=== PATIENT | female | born 1995 | race Caucasian/White ===

== ENCOUNTER 2019-09-26 15:24 | Emergency (ER) | payer MEDICAID ==
[~2019-09-26] VITALS: Ht 160 cm; Wt 122.6 kg
[2019-09-26] MEDS ORDERED: DEXAMETHASONE 4 MG TABLET ONE (16:50)
[2019-09-26] MEDS ORDERED: AMOXICILLIN 500 MG CAPSULE ONE (16:50)
--- NOTE | 2019-09-26 16:58 | NUR ---
PT MEDICATED PER ERP ORDER. VSS/UPDATED IN COMPUTER
[2019-09-26 16:59] VITALS: BP 113/62
[2019-09-26] MEDS ORDERED: AMOXICILLIN 500 MG CAPSULE PO ONE (17:00)
[2019-09-26] MEDS ORDERED: DEXAMETHASONE 4 MG TABLET PO ONE (17:00)
== END 2019-09-26 17:44 | disposition home or self-care (01) ==
LOC: ED 17:35
DX: J02.0 Streptococcal pharyngitis (principal)
CPT/HCPCS: 99283

== ENCOUNTER 2019-10-16 13:36 | Emergency (ER) | payer MEDICAID ==
[~2019-10-16] VITALS: Ht 165.1 cm; Wt 125.4 kg
[2019-10-16 13:38] VITALS: BP 143/82
== END 2019-10-16 15:21 | disposition home or self-care (01) ==
LOC: ED 14:46
DX: J04.0 Acute laryngitis (principal); J02.9 Acute pharyngitis, unspecified; R49.0 Dysphonia
CPT/HCPCS: 70360; 99283; J7512

== ENCOUNTER 2019-10-23 19:14 | Emergency (ER) | payer MEDICAID ==
[~2019-10-23] VITALS: Ht 160 cm; Wt 124.4 kg
[2019-10-23 19:19] VITALS: BP 140/95
[2019-10-23] MEDS ORDERED: DIPH,PERTUSS(ACELL),TET VAC/PF 0.5 ML IM-VACC ONE ×2 (19:30→19:34)
[2019-10-23] MEDS ORDERED: NEOSPORIN OINT. PKT 1 PACKET ONE (20:25)
== END 2019-10-23 20:49 ==
LOC: ED 20:10
DX: S61.212A Laceration without foreign body of right middle finger without damage to nail, initial encounter (principal); X58.XXXA Exposure to other specified factors, initial encounter; Y93.89 Activity, other specified; Y92.009 Unspecified place in unspecified non-institutional (private) residence as the place of occurrence of the external cause; Y99.8 Other external cause status
CPT/HCPCS: 90471; 90715; 99283

== ENCOUNTER 2020-07-24 19:08 | Emergency (ER) | payer MEDICAID ==
[~2020-07-24] VITALS: Ht 165.1 cm; Wt 142.0 kg
--- NOTE | 2020-07-24 20:51 | NUR ---
PT RESTING IN GURSIDNEY, DENIES DIZZINESS AT THIS TIME, MONITORS IN PLACE, NO OTHER NEEDS. AWAITING ERP EVAL.
[2020-07-24 21:33] LABS: BASOPHILS % (AUTO) 0 % (0-1); EOSINOPHILS % (AUTO) 1 % (1-7); LYMPHOCYTES % (AUTO) 35 % (22-44); MEAN CORPUSCULAR HEMOGLOBIN 28.9 pg (27.0-34.8); MEAN CORPUSCULAR HGB CONC 33.8 g/dL (32.4-35.8); MEAN PLATELET VOLUME 8.4 fL (7.4-10.4); MONOCYTES % (AUTO) 8 % (2-9); NEUTROPHILS % (AUTO) 57 % (42-75); PLATELET COUNT 253 x10^3/uL (130-400); RED BLOOD COUNT 4.34 x10^6/uL (3.82-5.3); RED CELL DISTRIBUTION WIDTH 15.3 % (9.6-15.2)
[2020-07-24 21:34] LABS: MD NO
[2020-07-24 21:46] LABS: ANION GAP 3 mmol/L (5-15); CALCIUM 8.6 mg/dL (8.5-10.1); CHLORIDE 106 mmol/L (98-107); CREATININE 0.79 mg/dL (0.55-1.02)
[2020-07-24 22:14] VITALS: BP 116/52
== END 2020-07-24 22:43 | disposition home or self-care (01) ==
LOC: ED 20:38
DX: R42 Dizziness and giddiness (principal); R11.0 Nausea; Z87.891 Personal history of nicotine dependence
CPT/HCPCS: 36415; 80048; 84443; 85025; 85379; 93005; 99284

== ENCOUNTER 2020-08-08 20:57 | Emergency (ER) | payer MEDICAID ==
[~2020-08-08] VITALS: Ht 160 cm; Wt 141.0 kg
[2020-08-08 21:01] VITALS: BP 128/101
--- NOTE | 2020-08-08 21:21 | NUR ---
PT CAME IN DUE TO FEELING A PULSING BEHIND HER EYES. HAD A FEELING OF DIZZINESS FOR A FEW DAYS, BUT HAS NOT TAKEN MEDICATION FOR IT.
[2020-08-08] MEDS ORDERED: PROCHLORPERAZINE 5 MG/ML, 2ML ONE (22:00)
[2020-08-08] MEDS ORDERED: DIPHENHYDRAMINE 50 MG/ML, 1ML ONE (22:00)
[2020-08-08] MEDS ORDERED: PROCHLORPERAZINE 5 MG/ML, 2ML IVPush ONE (22:00)
[2020-08-08] MEDS ORDERED: DIPHENHYDRAMINE 50 MG/ML, 1ML IVPush ONE (22:00)
[2020-08-08] MEDS ORDERED: KETOROLAC 30 MG/1 ML ONE (22:00)
[2020-08-08] MEDS ORDERED: KETOROLAC 30 MG/1 ML IVPush ONE (22:00)
--- NOTE | 2020-08-08 22:39 | NUR ---
PT RESTING COMFORTABLY, D/C INSTRUCTIONS AND PRESCRIPTIONS GIVEN BOTH VERBAL AND WRITTEN, PT VERBALIZED UNDERSTANDING.
== END 2020-08-08 22:43 | disposition home or self-care (01) ==
LOC: ED 22:39
DX: R51.9 Headache, unspecified (principal); J45.909 Unspecified asthma, uncomplicated
CPT/HCPCS: 99283